=== PATIENT | female | born 2000 | race Two or more races ===

== ENCOUNTER 2019-01-19 06:04 | Emergency (ER) | payer MEDICAID ==
[~2019-01-19] VITALS: Ht 165.1 cm; Wt 109.0 kg
[2019-01-19 06:39] LABS: BASOPHILS % (AUTO) 0.3 % (0-1); EOSINOPHILS # (AUTO) 0.1 X10'3 (0-0.9); EOSINOPHILS % (AUTO) 0.5 % (0-6); HEMATOCRIT 38.7 % (35.0-45.0); LYMPHOCYTES # (AUTO) 2.6 X10'3 (1.1-4.8); LYMPHOCYTES % (AUTO) 19.2 % (21-51); MEAN CORPUSCULAR HEMOGLOBIN 23.9 PG (27.0-31.0); MEAN CORPUSCULAR HGB CONC 31.1 g/dL (33.0-36.5); MEAN CORPUSCULAR VOLUME 76.9 FL (78-98); MONOCYTES # (AUTO) 1.4 X10'3 (0-0.9); MONOCYTES % (AUTO) 10.2 % (2-12); NEUTROPHILS # (AUTO) 9.3 X10'3 (1.8-7.7); NEUTROPHILS % (AUTO) 69.8 % (42-75); PLATELET COUNT 405 X10'3 (140-440); RED BLOOD COUNT 5.03 X10'6 (4.20-5.60); RED CELL DISTRIBUTION WIDTH 16.2 % (11.5-14.5); WHITE BLOOD COUNT 13.3 X10'3 (4.5-11.0)
[2019-01-19 06:43] LABS: CLARITY,URINE CLEAR (Clear); COLOR,URINE STRAW (Yellow); GLUCOSE, URINE NEGATIVE (Neg); KETONES,URINE NEGATIVE (Neg); LEUKOCYTE ESTERASE ,URINE NEGATIVE (Neg); NITRITES, URINE NEGATIVE (Neg); OCCULT BLOOD,URINE NEGATIVE (Neg); PH,URINE 6.5 (4.8-8.0); PROTEIN,URINE NEGATIVE (Neg); UROBILINOGEN,URINE 0.2 E.U/dL (0.2-1.0)
[2019-01-19 06:49] LABS: URINE HCG NEGATIVE (NEG)
[2019-01-19 06:58] LABS: UA COLLECTION TYPE CLN CATCH MIDSTREAM
[2019-01-19 07:02] LABS: ALANINE AMINOTRANSFERASE 38 U/L (12-78); ALBUMIN 3.7 G/DL (3.4-5.0); ALBUMIN/GLOBULIN RATIO 0.9 (1.1-1.5); ALKALINE PHOSPHATASE 85 IU/L (20-180); ANION GAP 11 (8-16); ASPARTATE AMINO TRANSFERASE 23 U/L (10-37); BILIRUBIN,TOTAL 0.3 MG/DL (0.1-1.0); BLOOD UREA NITROGEN 8 MG/DL (7-18); BUN/CREATININE RATIO 11.1 (6.6-38.0); CHLORIDE 104 MMOL/L (99-107); CREATININE 0.72 MG/DL (0.40-0.90); GLUCOSE 112 MG/DL (70-104); POTASSIUM 3.3 MMOL/L (3.5-5.1); SODIUM 139 MMOL/L (135-145); TOTAL CARBON DIOXIDE 24.3 MMOL/L (24-32); TOTAL PROTEIN 7.7 G/DL (6.4-8.2); eGFR > 90 ML/MIN
[2019-01-19 07:04] LABS: LIPASE 130 U/L (73-393)
[2019-01-19] MEDS ORDERED: ondansetron/PF 4mg/2ml inj IV ONE (07:15)
[2019-01-19] MEDS ORDERED: normal saline 1000ML IV soln IVB ONE (07:15)
[2019-01-19] MEDS: ketorolac trometh. 30mg/ml inj. IV ONE ×2 (07:35→08:10)
[2019-01-19] MEDS ORDERED: ketorolac trometh. 30mg/ml inj. IV ONE (08:05)
[2019-01-19] MEDS ORDERED: ONDA4TAB6 PO (09:03)
[2019-01-19] MEDS ORDERED: LORazepam 2 mg/ml vial IV ONE (09:05)
[2019-01-19 09:35] VITALS: BP 127/47
== END 2019-01-19 09:50 | disposition home or self-care (01) ==
LOC: ER 06:06
DX: R10.13 Epigastric pain (principal); D72.829 Elevated white blood cell count, unspecified; R05 Cough; F41.9 Anxiety disorder, unspecified; E03.9 Hypothyroidism, unspecified
CPT/HCPCS: 36415; 71045; 80053; 81003; 81025; 83690; 84443; 85025; 85610; 96374; 96375; 99284; J1885; J2060; J2405; J7030

== ENCOUNTER 2021-03-10 16:23 | Emergency (ER) | payer MEDICAID ==
[~2021-03-10] VITALS: Ht 167.6 cm; Wt 109.1 kg
[~2021-03-10 16:23] MED LIST: ONDA4TAB6 PO
[2021-03-10 16:29] VITALS: BP 134/78
[2021-03-10] MEDS ORDERED: PANT-47 PO (16:35)
== END 2021-03-10 16:39 | disposition home or self-care (01) ==
LOC: ER 16:24
DX: K21.9 Gastro-esophageal reflux disease without esophagitis (principal); R12 Heartburn; R11.2 Nausea with vomiting, unspecified; E03.9 Hypothyroidism, unspecified; Z79.899 Other long term (current) drug therapy
CPT/HCPCS: 99283